=== PATIENT | female | born 1985 | race African-American/Black ===

== ENCOUNTER 2017-03-29 09:54 | Emergency (ER) | payer OTHER ==
--- NOTE | ~2017-03-29 | US106 ---
[facility] A Service of [facility] RADIOLOGY TEXT RESULTS PATIENT: KUSUM LOPES LOCATION: [facility] : 89 UNIT #: [id number] AGE: [address]: Luciano Castellon DO SEX: F ORDER DR: [id number] [place] [address] [place], [place] [address] [id number] E MR#: [id number] Acc #: [id number] NAME: KUSUM LOPES : 1985 SEX: F STUDY DATE/TIME: 03/29/2017 16:03 UNIT: [facility] ROOM: STUDY DESCRIPTION: US Preg Uterus Transvaginal Attending Physician: Luciano Castellon D.O. Ordering Physician: Luciano Castellon D.O. Primary Care Physician: No Primary Care Physician MEDICAL IMAGING REPORT This report is preliminary unless electronic signature is present EXAM Ultrasound Preg Uterus Transvaginal HISTORY Beta HCG 15.08 per patient lower abdomen pain for 2 weeks. Increased last night last menstrual period 02/27/2017 A0. FINDINGS Real-time ultrasonography of the pelvic structures performed transabdominally and transvaginally. Transabdominal imaging suboptimal due to poor bladder filling. The uterus measures approximately 9.17 cm x 4.78 cm x 5.65 cm. Myometrium shows no suspicious abnormality. There is a cystic appearing structure along the mid cervical canal measuring approximately 3 or 4 mm in maximum diameter. This is favored to represent a nabothian cyst. The endometrial echo complex measures 11 mm in thickness. No intrauterine of greater than 4 weeks gestational age is identified. Correlation with follow up serial serum beta HCG values and followup pelvic ultrasound recommended. There is no free fluid the pelvis. The left ovary measures 3.91 cm x 2.71 cm x 2.51 cm. Contains a cystic structure measuring 7-8 mm in diameter. Arterial and venous flow noted in the left ovary. The right ovary measures 3.43 cm x 2.18 cm x 3.16 cm. It shows some peripheral follicular cysts. Arterial and venous flow present in the right ovary. IMPRESSION 1. There is no intrauterine of greater than 4 weeks gestational age seen on this examination. Correlate with serial beta HCG values and followup pelvic ultrasound. 2. 3-4 mm cystic structure seen at the mid cervical canal favored to be some form of nabothian cyst. 3. Endometrial echo complex normal in appearance. 4. No free fluid in pelvis. 5. Bilateral ovaries demonstrate arterial and venous flow. There is a STS. [facility] A Service of [facility] RADIOLOGY TEXT RESULTS PATIENT: KUSUM LOPES LOCATION: [facility] : 89 UNIT #: [id number] AGE: [address]: Luciano Castellon DO SEX: F ORDER DR: dominant 7-8 mm cyst in the left ovary. This may represent a corpus luteum of . Attention at followup recommended. Dictated by... Yonis Boswell M.D. THIS IS AN ELECTRONICALLY VERIFIED REPORT Yonis Boswell M.D. at 03/30/2017 6:12 PM JAMES/memo TD: 03/29/2017 18:02 JOB #: [id number] MEDICAL IMAGING REPORT Page 1 of 1 COPY
[2017-03-29 10:25] LABS: BASOPHIL% 0.6 % (0-2.5); EOSINOPHIL# 0.1 X10e3 (0-0.7); EOSINOPHIL% 1.7 % (0.0-7.0); HEMATOCRIT 37.2 % (35.0-45.0); HEMOGLOBIN 11.5 gm/dL (12.0-16.0); LYMPHOCYTE# 1.9 X10e3 (1.0-3.5); LYMPHOCYTE% 43.8 % (17.0-45.0); MEAN CELL VOLUME 81.1 FL (83-96); MEAN CORPUSCULAR HEMOGLOBIN 25.1 PG (28-34); MEAN PLATELET VOLUME 10.4 FL (6.5-11.5); MONOCYTE# 0.3 X10e3 (0-1.0); NEUTROPHIL# 2.1 X10e3 (1.5-7.1); NEUTROPHIL% 47.9 % (40-75); PLATELET COUNT 156 X10e3 (140-420); RED BLOOD COUNT 4.58 X10e (3.90-5.30); RED CELL DISTRIBUTION WIDTH 15.7 % (11.0-15.5); WHITE BLOOD COUNT 4.4 X10e3 (4.0-10.5)
[2017-03-29 10:26] LABS: DIFF IND NO
[2017-03-29 10:44] LABS: URINE SOURCE CLEAN CATCH
[2017-03-29 10:48] LABS: URINE APPEARANCE CLEAR; URINE BILIRUBIN NEG (NEG); URINE BLOOD NEG (NEG); URINE COLOR YELLOW; URINE GLUCOSE NEG (NEG); URINE KETONE NEG (NEG); URINE LEUKOCYTE ESTERASE NEG (NEG); URINE NITRATE NEG (NEG); URINE PH 5.5 (5-8); URINE PROTEIN NEG (NEG); URINE SPECIFIC GRAVITY 1.024 (1.003-1.035); URINE UROBILINOGEN 0.2 MG/DL (NEG)
[2017-03-29 10:51] LABS: CULTURE INDICATED? NO
[2017-03-29 10:58] LABS: ALKALINE PHOSPHATASE 40 U/L (32-92); ALT (SGPT) 22 U/L (10-40); AST (SGOT) 24 U/L (10-42); BILIRUBIN,TOTAL 0.9 mg/dL (0.2-2.0); BLOOD UREA NITROGEN 12 mg/dL (9-23); BUN/CREATININE RATIO 17.14; CALCIUM SERUM 8.8 mg/dL (8.4-10.2); CARBON DIOXIDE 24 mmol/L (22-31); CHLORIDE 109 mmol/L (100-111); CREATININE SERUM 0.7 mg/dL (0.6-1.4); GLOM FILT RATE Estimated 135.7 mL/min (>60); GLUCOSE FASTING 127 mg/dL (70-110); LIPASE 25 U/L (22-51); POTASSIUM 3.7 mmol/L (3.5-5.1); PROTEIN TOTAL SERUM 7.2 g/dL (6.0-8.3); SODIUM 139 mmol/L (135-145)
[2017-03-29 11:01] LABS: BILIRUBIN, DIRECT <0.1 mg/dL (0.0-0.2); BILIRUBIN,INDIRECT 0.8 mg/dL (0.0-0.9)
[2017-04-02 15:43] LABS: CHLAMYDIA TRACH Not Detected (Not Detected); N GONOR Not Detected (Not Detected)
== END 2017-03-29 18:40 | disposition left against medical advice (07) ==
LOC: CED 09:54
PROVIDERS: Emergency Medicine
DX: R10.2 Pelvic and perineal pain (principal)
CPT/HCPCS: 36415; 76817; 80048; 80076; 81003; 83690; 84702; 84703; 85025; 87491; 87591; 87808; 87905; 99284